=== PATIENT | female | born 1975 | race Two or more races ===

== ENCOUNTER 2024-03-29 09:38 | Emergency (ER) | payer OTHER ==
[~2024-03-29] VITALS: Ht 165.1 cm; Wt 82.6 kg
[2024-03-29] MEDS ORDERED: NORVASC2.5 MG PO (09:51)
[2024-03-29] MEDS ORDERED: COZAAR100 MG PO ×2 (09:51→11:03)
[2024-03-29] MEDS ORDERED: BUSPIRONE HCL5 MG (09:51)
[2024-03-29] MEDS ORDERED: PROTONIX40 MG PO (09:51)
[2024-03-29 09:52] VITALS: BP 143/82; O2SAT 99
[2024-03-29] MEDS ORDERED: BUTALB/ACETAMINOPHEN/CAFFEINE 1 TAB TABLET PO ONE (10:15)
[2024-03-29] MEDS ORDERED: NORVASC2.5 M1 PO (11:03)
[2024-03-29] MEDS ORDERED: BUTALB-ACETAMI1 EACH PO (11:03)
== END 2024-03-29 12:20 | disposition home or self-care (01) ==
LOC: ER 09:40
DX: G43.909 Migraine, unspecified, not intractable, without status migrainosus (principal); I10 Essential (primary) hypertension

== ENCOUNTER → 2024-07-19 | Outpatient (CLI) | payer OTHER ==
[~2024-07-19] MED LIST: BUSPIRONE HCL5 MG; BUTALB-ACETAMI1 EACH PO; COZAAR100 MG PO; NORVASC2.5 M1 PO; NORVASC2.5 MG PO; PROTONIX40 MG PO
== END | disposition home or self-care (01) ==
LOC: MAMO-SONO 09:02
PROVIDERS: ATTEND Internal Medicine
DX: N64.4 Mastodynia (principal)

== ENCOUNTER 2024-08-13 16:55 | Emergency (ER) | payer OTHER ==
[~2024-08-13] VITALS: Ht 165.1 cm; Wt 88.5 kg
[2024-08-13 17:07] VITALS: O2SAT 100
[2024-08-13 18:23] LABS: MEAN CELL VOLUME 90.3 fL (80.00-100.00); MEAN CORPUSCULAR HGB CONC 34.3 g/dl (32.0-36.0); PLATELET COUNT 339 K/uL (150-450); RED BLOOD COUNT 4.21 M/uL (4.00-6.00); RED CELL DISTRIBUTION WIDTH 13.7 % (11.5-14.5)
[2024-08-13 18:31] VITALS: BP 130/85
[2024-08-13 18:52] LABS: INR 0.97; PARTIAL THROMBOPLASTIN TIME 27.5 SECONDS (22.0-34.0); PROTHROMBIN TIME 10.6 SECONDS (9.0-11.5)
[2024-08-13 18:56] LABS: ALBUMIN 4.1 gm/dL (3.4-5.0); BILIRUBIN TOTAL 0.29 mg/dL (0.3-1.2); CALCIUM 9.2 mg/dL (8.5-10.1); CREATININE SERUM 0.64 mg/dL (0.55-1.02); GFR 99.04; GLOBULINA 3.3 G/DL (2.4-3.5); POTASSIUM 3.51 mEq/L (3.5-5.1); TOTAL PROTEIN 7.4 gm/dL (6.4-8.2)
[2024-08-13 19:08] LABS: URINE APPEARANCE Clear; URINE BILIRRUBIN Negative (NEGATIVE); URINE BLOOD Trace; URINE COLOR Yellow; URINE GLUCOSE Negative (NEGATIVE); URINE KETONE Negative (NEGATIVE); URINE LEUKOCYTE Negative; URINE NITRATE Negative; URINE PROTEIN Negative (NEGATIVE); URINE UROBILINOGEN 0.2 E.U./dl
[2024-08-13 19:12] LABS: URINE RBC 5.2 uL (0.0-20.8)
[2024-08-13] MEDS ORDERED: TRAMADOL HCL 50 MG TABLET PO ONE (19:15)
[2024-08-13 19:33] LABS: URINE EPITHELIAL CELLS 0.4 uL (0.0-38.8); URINE WBC 0.1 uL (0.0-23.2)
[2024-08-14] MEDS ORDERED: LORazepam 2 MG/ML VIAL IM ONE (00:15)
[2024-08-14] MEDS ORDERED: LORazepam 2 MG/ML VIAL ONE (00:22)
== END 2024-08-14 00:44 | disposition home or self-care (01) ==
LOC: ER 16:55
PROVIDERS: General Practice
DX: R20.0 Anesthesia of skin (principal); I10 Essential (primary) hypertension
CPT/HCPCS: 36415; 70450; 70552; 71045; 72125; 93005; 93041; Q9965